=== PATIENT | male | born 1940 | race Caucasian/White ===

== ENCOUNTER 2017-01-01 10:56 | Emergency (ER) | payer OTHER ==
[~2017-01-01] VITALS: Ht 167.6 cm; Wt 86.0 kg
[~2017-01-01 10:56] MED LIST: ASPIR 8181 M1; Aspirin E.C. PO; Levaquin PO; MENS VITAMIN; PRAVACHOL40 MG PO; Proventil,Ventolin H IH; TAMIFLU75 MG PO; predniSONE PO
[2017-01-01 12:22] LABS: HEMATOCRIT 48.1 % (38.0-50.0); MCH 29.9 PG (29.0-34.0); MCHC 32.8 G/DL (30.0-36.0); MCV 91.1 FL (86-99); MEAN PLAT.VOLUME 8.6 uM^3 (9.0-12.4); PLATELET COUNT 220 K/uL (156-360); RBC DIS.WIDTH-CV 12.1 % (11.8-14.6); RED BLOOD COUNT 5.28 M/uL (4.00-5.50); WHITE BLOOD COUNT 7.3 K/uL (4.1-10.2)
[2017-01-01 12:31] LABS: CHLORIDE 105 mEq/L (99-109); POTASSIUM 4.5 mEq/L (3.7-5.4); SODIUM 141 mEq/L (136-147)
[2017-01-01 12:33] LABS: GLUCOSE 92 mg/dL (70-99)
[2017-01-01 12:34] LABS: ANION GAP 9 MEQ/L (2-14)
[2017-01-01 12:35] LABS: TOTAL BILIRUBIN 0.4 mg/dL (0.0-1.0)
[2017-01-01 12:37] LABS: ALKALINE PHOSPHATASE 80 IU/L (3-129); GFR ESTIMATE (CALCULATED) > 59 mL/min/
[2017-01-01 12:38] LABS: UREA NITROGEN (BUN) 19 mg/dL (9-23)
[2017-01-01 14:18] VITALS: BP 162/96
== END 2017-01-01 15:00 | disposition home or self-care (01) ==
LOC: EME 10:56
PROVIDERS: Nurse Practitioner Family
DX: R53.1 Weakness (principal); G91.2 (Idiopathic) normal pressure hydrocephalus; R29.6 Repeated falls; R26.81 Unsteadiness on feet; E78.5 Hyperlipidemia, unspecified; Z79.52 Long term (current) use of systemic steroids; Z79.82 Long term (current) use of aspirin
CPT/HCPCS: 70551; 80053; 81003; 85027; 93005; 99281; 99285; G8987 GO CJ; G8988 GO CH; G8989 GO CH

== ENCOUNTER 2017-01-30 13:27 | Day surgery (SDC) | payer OTHER ==
[~2017-01-30] VITALS: Ht 167.6 cm; Wt 124.7 kg
[2017-01-31] MEDS ORDERED: LO-DOSE ASPIRIN81 M2 PO (14:06)
== END 2017-01-30 14:09 | disposition home or self-care (01) ==
LOC: SDC 13:27 → 2SOUTH 13:27 → SDC 14:09 → EDSTATUS 18:47
PROC: 0WJ Anatomical Regions, General, Inspection (ICD-10-PCS; principal; 2017-01-30)
DX: G91.0 Communicating hydrocephalus (principal); Z53.09 Procedure and treatment not carried out because of other contraindication

== ENCOUNTER 2017-02-01 08:33 | Inpatient (IN) | payer OTHER ==
[~2017-02-01] VITALS: Ht 167.6 cm; Wt 91.4 kg
[~2017-02-01 08:33] MED LIST changes: +LO-DOSE ASPIRIN81 M2 PO
[2017-02-01 09:45] VITALS: BP 141/87
[2017-02-01 15:31] LABS: APPEARANCE CLEAR/COLORLESS; RED CELL AREA COUNTED 18; RED CELL DILUTION 1
[2017-02-01 15:32] LABS: CSF EOSINOPHILS 0 % (0-25); MONO RAW COUNT 0; MONONUCLEAR WBC'S 0 % (50-90); POLY RAW COUNT 0; POLYNUCLEAR WBC'S 0 % (0-3); RED CELL COUNT 1 /MM^3 (0-1); WBC AREA COUNTED 18; WBC DILUTION 1; WHITE CELL COUNT 0 /MM^3 (0-5); WHITE CELL RAW COUNT 0
[2017-02-01 16:07] VITALS: BP 142/75
[2017-02-01 20:32] VITALS: BP 161/91
[2017-02-01 23:43] VITALS: BP 164/72
[2017-02-02 04:12] VITALS: BP 178/82
[2017-02-02 07:28] VITALS: BP 140/92
[2017-02-02] MEDS ORDERED: HYDROCODON-ACE1 EAC7 PO (07:37)
[2017-02-02 11:11] VITALS: BP 146/92
== END 2017-02-02 14:50 | disposition home or self-care (01) | DRG 33 ==
LOC: 3EAST 08:33 → 2SOUTH 08:33 → 3EAST 15:57
PROVIDERS: Neurological Surgery
PROC: 00160J6 Bypass Cerebral Ventricle to Peritoneal Cavity with Synthetic Substitute, Open Approach (ICD-10-PCS; principal; 2017-02-01)
DX: G91.0 Communicating hydrocephalus (principal); R26.2 Difficulty in walking, not elsewhere classified; Z91.81 History of falling; E78.5 Hyperlipidemia, unspecified
CPT/HCPCS: 70450; 82945; 84157; 86617 90; 86618 90; 87102; 87205; 89051; J0690; J1100; J2405; J2710; J3010; J3480